=== PATIENT | male | born 1955 | race Caucasian/White ===

== ENCOUNTER → 2016-05-19 | Outpatient (CLI) | payer OTHER ==
[~2016-05-19] MED LIST: PHEN-939 PO; PRED10TA PO; PRLSR20 PO; TAMS0.4C38 PO
[2016-05-19 14:28] VITALS: BP 132/80; PULSE 76; TEMP 36.6; O2SAT 94
--- NOTE | 2016-05-19 16:16 | Radiation Oncology Follow-Up ---
Radiation Oncology Follow-Up Date of Visit May 19, 2016. (Bettina Rivera PA-C) Reason For Visit One-month follow-up and cancer survivorship care plan (Bettina Rivera PA-C) Radiation Completion Date 04/23/16 (Bettina Rivera PA-C) Diagnosis (1) Prostate cancer Status: Acute Onset Date: 12/22/2015 Location: left lobe of the prostate Histology Subtype: adenocarcinoma Stage: ll (A) Permanent Comment: Rise in PSA, PSA 11/12/2014 4.69 Status post ultrasound-guided biopsy 11/18/2014, benign Rising PSA to 5.32 11/28/2015 Status post ultrasound-guided biopsy 12/22/2015 Sarika 3+4 1 of 15 cores positive, percentage of cores 20%, percentage of 4 at less than 10% Prostate volume 68.38 Prostate density 0.078 Status post completion of radiation therapy 04/23/2016. He received 7000 cGy utilizing hypo-fractionation. Last Edited By: Bettina Rivera on Apr 28, 2016 11:55 (Bettina Rivera PA-C) History of Present Illness Mr. Landers is a 60-year-old male without a family history of prostate cancer. He is been followed with screening prostate-specific antigens. In September 2013 his prostate-specific antigen was elevated at 4.81 at the time of prostate-specific antigen screening and 4.46 with repeat. On 10/30/2013 prostate-specific antigen remained elevated at 4.55 and on 11/12/2014 at 4.69. Digital rectal exams were reportedly unremarkable and the patient agreed to proceed with an ultrasound-guided prostate biopsy on 11/18/2014. A total of 17 biopsies were taken and all biopsies were benign. The biopsy from the left lateral apex showed atypical small acinar proliferation. Patient underwent a repeat prostate-specific antigen on 11/28/2015. This showed a continued increase to 5.32. This therefore prompted recommendation for a repeat ultrasound-guided biopsy the patient agreed to. This biopsy was performed on 12/22/2015. Total of 15 biopsies were taken. Biopsies from the left apex showed atypical small acinar proliferation. Biopsies from the left lateral base, right lateral mid, left lateral apex and right apex revealed benign prostatic tissues with acute inflammation. The biopsy from the left lateral mid gland revealed a small component of adenocarcinoma [place] grade of 3+4 involving 20% of the core tissue sample. The pattern 4 represented less than 10% of the tumor volume. Therefore total of 1 out of 12 biopsies were positive. Accession #: [id number]. The patient's estimated prostate volume was 68.38 cm. This gives a prostate-specific antigen density of 0.07 consistent with low volume disease. We were asked to see the patient to discuss with him the potential radiation treatment options. It is for this reason the patient is seen in referral. Options of treatment were reviewed with the patient. He also was seen by a surgeon. Ultimately his decision was to have radiation therapy. He was treated with hypo-fractionation. Radiation was completed 04/23/2016. He received 7000 cGy. (Bettina Rivera PA-C) Interim History He's been doing well over the past month. He had been on a tapering dose of prednisone. This was completed without difficulty. He has had steady improvement in his urinary symptoms. Today he gave an AUA score of 10.5. At the end of treatment his AUA score was 16. He does continue on Pyridium 3 times a day. He currently is not having burning on urination. His fatigue is improving. He is now working eight-hour days. He completed expanded prostate cancer index composite for clinical practice and gave a score of 0 of 12 and urinary incontinence symptoms. He gave a score of 3 of 12 and urinary irritation symptoms. He gave a score of 0 of 12 and bowel symptoms. He gave a score of one of 12 and sexual symptoms. He gave a score of 212 and hormonal vitality symptoms. His total was 6 of 60. He has continued on the tamsulosin twice daily. (Bettina Rivera PA-C) Allergies Coded Allergies: No Known Allergies (Unverified , 01/13/16) Home Medications Scheduled Omeprazole (Prilosec), 20 MG PO DAILY Phenazopyridine Hcl (Pyridium), 1 TAB PO TID Tamsulosin Hcl (Flomax), 1 CAP PO BID Review of Systems Gastrointestinal: Symptoms: WNL GI Comments: Taking metamucil daily; Oral: Symptoms: No Problems Respiratory: Symptoms: WNL Urinary: Symptoms: WNL Comments: 2-4 voids/night; Skin: Symptoms: No Problems (Bettina Rivera PA-C) Physical Exam Vital Signs Date Time Temp Pulse Resp B/P Pulse Ox O2 Delivery O2 Flow Rate FiO2 05/19/16 14:28 36.6 76 24 132/80 94 Fatigue: None General Appearance: no apparent distress Eyes: normal inspection, EOMI ENT: normal ENT inspection, hearing grossly normal Neck: no adenopathy Respiratory/Chest: lungs clear, no respiratory distress, no accessory muscle use Cardiovascular: regular rate, rhythm, no gallop, no murmur Abdomen: non tender, soft, no organomegaly Extremities: no pedal edema Neurologic/Psychiatric: no motor/sensory deficits, alert, normal mood/affect Skin: warm/dry Lymphatic: no adenopathy (Bettina Rivera PA-C) Laboratory Studies Test 03/25/16 07:50 05/19/16 14:53 Urine Color YELLOW Urine Appearance CLOUDY (CLEAR) Urine pH 7.5 (4.5-7.5) Urine Specific [place] 1.017 (1.000-1.030) Urine Protein NEG (NEG) Urine Glucose (UA) NEG (NEG) Urine Ketones NEG (NEG) Urine Occult Blood NEG (NEG) Urine Nitrite NEG (NEG) Urine Bilirubin NEG (NEG) Urine Urobilinogen NEG (NEG) Urine Leukocyte Esterase NEG (NEG) Urine WBC (Auto) 1-5 /hpf (0-5) Urine RBC (Auto) 0-4 /hpf (0-4) Urine Hyaline Casts (Auto) 1-5 /lpf (0-5) Urine Epithelial Cells (Auto) 5-10 /lpf (0-5) Urine Bacteria (Auto) NEG (NEG) Prostate Specific Antigen 4.410 ng/ml (0.000-4.000) (Bettina Rivera PA-C) Assessment & Plan PSA was drawn today. He'll be notified as to results. He hasn't appointment with Dr. Fong next month. We discussed rescheduling the appointment for August. He is going to taper off the Pyridium and observe if there is any recurrence of dysuria. He is going to continue on the tamsulosin twice daily. I've asked him to review his urinary status with Dr. Fong in August. He may possibly be able to decrease to 1 tamsulosin per day if he is doing well with his urinary symptoms. He'll continue regular follow-up with his primary care physician. We asked him to return to our office in 6 months. He may call if she has any questions or concerns in the interim. We completed a cancer survivorship care plan today. A copy of the document was given to the patient. He was also given a survivorship booklet. He was also seen today by Dr. Gary. (Bettina Rivera PA-C) I agree with note created by Bettina Rivera PA-C. I reviewed the patient's chart and information with her. I have examined and evaluated the patient. I reviewed relevant clinical information and answered the patient's and/or family' s questions. (Veeral. Gary MD) Total Time In Follow-Up I spent 20 minutes speaking to the patient performing examination. I spent 20 minutes reviewing information, preparing the survivorship document, and completing this note. (Bettina Rivera PA-C) I spent 15 minutes examining and counseling the patient. (Veeral. Gary MD) Copy To Yudy Fong MD; Ammon Shields M.D. ([facility])
--- NOTE | 2016-07-16 09:25 | CODING QUERY NO DIAGNOSIS ---
: 1955 TREATMENT RENDERED WITHOUT A DIAGNOSIS To promote full compliance with coding requirements relating to patient care, physician participation is requested in all cases of matrix repairer uncertainty. Please assist us with providing a diagnosis/symptom for the test(s) below: A diagnosis/symptom was not documented on your Order. A valid diagnosis/symptom is required to bill all insurances. Please remember that we are unable to code a diagnosis of rule out, probable, possible, questionable, or suspected. Tests that require a diagnosis: DOS: 05/19/16 * PSA DIAGNOSIS: Provider Signature: Date: Thank you Leah Anglin Health Information Management Once completed, please kindly fax back to [phone] For questions please call [phone]
== END | disposition home or self-care (01) ==
LOC: C.ONC 14:21
PROVIDERS: ATTEND Physician Assistant Medical
DX: Z08 Encounter for follow-up examination after completed treatment for malignant neoplasm (principal); Z92.3 Personal history of irradiation; Z85.46 Personal history of malignant neoplasm of prostate; C61 Malignant neoplasm of prostate

== ENCOUNTER → 2016-10-12 | Outpatient (CLI) | payer OTHER ==
[~2016-10-12] MED LIST changes: -PRED10TA PO
== END | disposition home or self-care (01) ==
LOC: C.LABSPEC 16:42
PROVIDERS: ATTEND Podiatrist Foot & Ankle Surgery
DX: L40.8 Other psoriasis (principal)

== ENCOUNTER → 2016-11-04 | Outpatient (CLI) | payer OTHER | END | disposition home or self-care (01) | LOC: C.PATHSPEC 17:17 | PROVIDERS: ATTEND Podiatrist Foot & Ankle Surgery | DX: L20.89 Other atopic dermatitis (principal); L20.81 Atopic neurodermatitis; L40.0 Psoriasis vulgaris ==

== ENCOUNTER → 2016-11-17 | Outpatient (CLI) | payer OTHER ==
[2016-11-17 14:29] VITALS: BP 135/81; PULSE 63; TEMP 36.4; O2SAT 96
--- NOTE | 2016-11-17 15:42 | Radiation Oncology Follow-Up ---
Radiation Oncology Follow-Up Date of Visit Nov 17, 2016. Reason For Visit 6 month follow-up Radiation Completion Date 04/23/16 Diagnosis (1) Prostate cancer Status: Resolved Onset Date: 12/22/2015 Location: left lobe of the prostate Histology Subtype: adenocarcinoma Stage: ll (A) Permanent Comment: Rise in PSA, PSA 11/12/2014 4.69 Status post ultrasound-guided biopsy 11/18/2014, benign Rising PSA to 5.32 11/28/2015 Status post ultrasound-guided biopsy 12/22/2015 Sarika 3+4 1 of 15 cores positive, percentage of cores 20%, percentage of 4 at less than 10% Prostate volume 68.38 Prostate density 0.078 Status post completion of radiation therapy 04/23/2016. He received 7000 cGy utilizing hypo-fractionation. Last Edited By: Bettina Rivera on Apr 28, 2016 11:55 History of Present Illness Mr. Landers is a 60-year-old male without a family history of prostate cancer. He is been followed with screening prostate-specific antigens. In September 2013 his prostate-specific antigen was elevated at 4.81 at the time of prostate-specific antigen screening and 4.46 with repeat. On 10/30/2013 prostate-specific antigen remained elevated at 4.55 and on 11/12/2014 at 4.69. Digital rectal exams were reportedly unremarkable and the patient agreed to proceed with an ultrasound-guided prostate biopsy on 11/18/2014. A total of 17 biopsies were taken and all biopsies were benign. The biopsy from the left lateral apex showed atypical small acinar proliferation. Patient underwent a repeat prostate-specific antigen on 11/28/2015. This showed a continued increase to 5.32. This therefore prompted recommendation for a repeat ultrasound-guided biopsy the patient agreed to. This biopsy was performed on 12/22/2015. Total of 15 biopsies were taken. Biopsies from the left apex showed atypical small acinar proliferation. Biopsies from the left lateral base, right lateral mid, left lateral apex and right apex revealed benign prostatic tissues with acute inflammation. The biopsy from the left lateral mid gland revealed a small component of adenocarcinoma [place] grade of 3+4 involving 20% of the core tissue sample. The pattern 4 represented less than 10% of the tumor volume. Therefore total of 1 out of 12 biopsies were positive. Accession #: [id number]. The patient's estimated prostate volume was 68.38 cm. This gives a prostate-specific antigen density of 0.07 consistent with low volume disease. We were asked to see the patient to discuss with him the potential radiation treatment options. It is for this reason the patient is seen in referral. Options of treatment were reviewed with the patient. He also was seen by a surgeon. Ultimately his decision was to have radiation therapy. He was treated with hypo-fractionation. Radiation was completed 04/23/2016. He received 7000 cGy. Interim History He has been doing well from urinary standpoint over the past 6 months. His AUA score today was 6. He was able to taper off and discontinue tamsulosin. He completed and expanded prostate cancer index composite for clinical practice and gave a score of 0 of 12 and urinary incontinence symptoms. He gave a score of 0 of 12 and urinary irritation symptoms. He gave a score of 0 of 12 and bowel symptoms. He gave a score of 8 of 12 and sexual symptoms. To note he considers this not a problem. He gave a score of 3 of 12 in hormonal vitality symptoms. His total was 11 of 60. His last PSA was on 05/19/2016. This was 4.410. The PSA prior to treatment was 5.32. His main issue is continued fatigue. He is also concerned about his weight. He does try to watch his diet. He is also trying to exercise. In spite of these efforts he does not lose weight. He has previously seen a eviction specialist. Allergies Coded Allergies: No Known Allergies (Unverified , 01/13/16) Review of Systems Gastrointestinal: Symptoms: WNL GI Comments: Taking metamucil daily; Oral: Symptoms: No Problems Respiratory: Symptoms: WNL Urinary: Symptoms: Nocturia Comments: Nocturia x 0-1, See AUA & EPIC Skin: Symptoms: No Problems Physical Exam Vital Signs Date Time Temp Pulse Resp B/P (MAP) Pulse Ox O2 Delivery O2 Flow Rate FiO2 11/17/16 14:29 36.4 63 18 135/81 96 Fatigue: None General Appearance: no apparent distress, + obese Eyes: normal inspection, EOMI ENT: normal ENT inspection, hearing grossly normal Neck: no adenopathy Respiratory/Chest: lungs clear, no respiratory distress, no accessory muscle use Cardiovascular: regular rate, rhythm, no gallop, no murmur Extremities: no pedal edema Neurologic/Psychiatric: no motor/sensory deficits, alert, normal mood/affect Skin: warm/dry Laboratory Studies Test 11/17/16 14:41 Assessment & Plan Plan: PSA was drawn today. He'll be notified as to the results. Continue follow-up with Dr. Fong and Dr. Shields. He is planning to schedule another appointment with a eviction specialist to follow up on his difficulties with weight loss. He is also going to discuss this with Dr. Shields. I reviewed with him that he may need to have his testosterone level also check. He'll discuss that further with Dr. Fong. He will continue to follow his diet and increase exercise. We did discuss joining a program such as [employer]. He stated he has a friend who is currently going to [employer] and is doing well. We asked him to return to our office in 1 year. I've asked him to try to alternate visits every [address] Fong. Total Time In Follow-Up I spent 20 minutes speaking to the patient and performing examination. I spent 15 minutes reviewing information in completing this note. Copy To Yudy Fong MD; Ammon Shields M.D.([facility]
== END | disposition home or self-care (01) ==
LOC: C.ONC 14:11
PROVIDERS: ATTEND Physician Assistant Medical
DX: Z08 Encounter for follow-up examination after completed treatment for malignant neoplasm (principal); Z92.3 Personal history of irradiation; Z85.46 Personal history of malignant neoplasm of prostate